=== PATIENT | female | born 1995 | race Caucasian/White ===

== ENCOUNTER 2020-02-01 13:54 | Emergency (ER) | payer OTHER ==
[~2020-02-01] VITALS: Ht 175.3 cm; Wt 78.5 kg
[2020-02-01] MEDS ORDERED: PRENATA CHEWAB1 EACH (14:00)
== END 2020-02-01 17:24 | disposition home or self-care (01) ==
LOC: ER 13:54
DX: O98.511 Other viral diseases complicating pregnancy, first trimester (principal); B96.0 Mycoplasma pneumoniae [M. pneumoniae] as the cause of diseases classified elsewhere; O23.31 Infections of other parts of urinary tract in pregnancy, first trimester; Z03.818 Encounter for observation for suspected exposure to other biological agents ruled out; Z3A.10 10 weeks gestation of pregnancy

== ENCOUNTER 2020-02-29 19:37 | Emergency (ER) | payer OTHER ==
[~2020-02-29] VITALS: Ht 175.3 cm; Wt 77.6 kg
[~2020-02-29 19:37] MED LIST: PRENATA CHEWAB1 EACH
[2020-03-01] MEDS ORDERED: INTESTINEX680 M1 PO (06:27)
[2020-03-01] MEDS ORDERED: DUI500 PO (06:27)
[2020-03-01] MEDS ORDERED: ONDANSETRON ODT4 MG SL (06:34)
[2020-03-01] MEDS ORDERED: PEPCID COMPLET1 EACH PO (06:35)
== END 2020-03-01 06:53 | disposition home or self-care (01) ==
LOC: ER 19:37
DX: O23.32 Infections of other parts of urinary tract in pregnancy, second trimester (principal); R50.9 Fever, unspecified; M54.5 Low back pain; K29.00 Acute gastritis without bleeding; Z3A.14 14 weeks gestation of pregnancy

== ENCOUNTER 2020-04-09 20:52 | Inpatient (IN) | payer OTHER ==
[~2020-04-09] VITALS: Ht 175.3 cm; Wt 78.9 kg
[~2020-04-09 20:52] MED LIST changes: +DUI500 PO; +INTESTINEX680 M1 PO; +ONDANSETRON ODT4 MG SL; +PEPCID COMPLET1 EACH PO
== END 2020-04-15 11:32 | disposition home or self-care (01) | DRG 831 ==
LOC: OBS/DEL 20:52 → LDR 04-10 08:18 → OBS/DEL 04-10 08:18 → OB/GYN 04-11 16:29 → LDR 04-11 16:31 → OB/GYN 04-11 20:05
PROVIDERS: ADMIT Obstetrics & Gynecology; ATTEND Obstetrics & Gynecology
PROC: 4A1HXCZ Monitoring of Products of Conception, Cardiac Rate, External Approach (ICD-10-PCS; principal; 2020-04-10)
PROC: BT43ZZZ Ultrasonography of Bilateral Kidneys (ICD-10-PCS; 2020-04-10)
PROC: BY4CZZZ Ultrasonography of Second Trimester, Single Fetus (ICD-10-PCS; 2020-04-10)
DX: O23.32 Infections of other parts of urinary tract in pregnancy, second trimester (principal); O60.02 Preterm labor without delivery, second trimester; O26.842 Uterine size-date discrepancy, second trimester; O26.892 Other specified pregnancy related conditions, second trimester; R10.2 Pelvic and perineal pain; B96.29 Other Escherichia coli [E. coli] as the cause of diseases classified elsewhere

== ENCOUNTER → 2020-05-01 | Outpatient (CLI) | payer OTHER | END | disposition home or self-care (01) | LOC: PRENATAL 12:01 | PROVIDERS: ATTEND Obstetrics & Gynecology Maternal & Fetal Medicine | DX: O26.872 Cervical shortening, second trimester (principal); O26.842 Uterine size-date discrepancy, second trimester; Z36.89 Encounter for other specified antenatal screening; Z3A.24 24 weeks gestation of pregnancy ==

== ENCOUNTER 2020-07-17 03:16 | Inpatient (IN) | payer OTHER ==
[~2020-07-17] VITALS: Ht 175.3 cm; Wt 89.8 kg
[2020-07-17] MEDS ORDERED: IRON236 MG PO (03:43)
[2020-07-22] MEDS ORDERED: AMOX1TAB5 PO (11:02)
[2020-07-22] MEDS ORDERED: PREPLUS CA-FE1 EACH PO (11:02)
[2020-07-22] MEDS ORDERED: IBUPROFEN800 MG PO (11:02)
[2020-07-22] MEDS ORDERED: DOCUSATE SODIU100 MG PO (11:02)
== END 2020-07-22 14:35 | DRG 807 ==
LOC: OB/GYN 03:16 → LDR 03:16 → OB/GYN 10:08
PROVIDERS: ADMIT Obstetrics & Gynecology; ATTEND Obstetrics & Gynecology
PROC: 10E0XZZ Delivery of Products of Conception, External Approach (ICD-10-PCS; principal; 2020-07-17)
PROC: 4A1HXFZ Monitoring of Products of Conception, Cardiac Rhythm, External Approach (ICD-10-PCS; 2020-07-17)
DX: O60.14X0 Preterm labor third trimester with preterm delivery third trimester, not applicable or unspecified (principal); Z37.0 Single live birth; Z3A.34 34 weeks gestation of pregnancy; Z20.828 Contact with and (suspected) exposure to other viral communicable diseases